=== PATIENT | female | born 1990 | race Hispanic/Latino ===

== ENCOUNTER 2021-02-14 12:29 | Inpatient (IN) | payer OTHER ==
[~2021-02-14] VITALS: Ht 162.6 cm; Wt 70.0 kg
--- NOTE | 2021-02-14 12:35 | NUR ---
PATIENT TO ROOM VIA EMS AND PHYSICIAN AT BEDSIDE FOR EVAL
[2021-02-14 13:02] LABS: GFR > 60 ML/MIN (>=60 (CALC)); GFR FOR AFR.AMER. > 60 ML/MIN (>=60 (CALC))
[2021-02-14 13:03] LABS: HEMATOCRIT 41.2 % (37.0-47.0); HEMOGLOBIN 13.7 g/dl (12.0-16.0); IMMATURE GRANULOCYTES 0.4 % (0.0-5.0); MEAN CELL VOLUME 89.6 fL CALC (80.0-100.0); MEAN CORPUSCULAR HGB 29.8 pG CALC (26.0-32.0); MEAN CORPUSCULAR HGB CONC 33.3 g/dL CAL (32.0-36.0); NEUT# 3.61 thou/uL (2.00-7.15); RED BLOOD COUNT 4.6 mill/uL (4.20-5.60); RED CELL DISTRI WIDTH 11.9 % (11.5-15.5)
--- NOTE | 2021-02-14 13:15 | NUR ---
PATIENT RESTING IN BED WITH WARM BLANKET. NO ACUTE DISTRESS. VSS
[2021-02-14 13:20] LABS: HCG SERUM/URINE (NEG/POS) NEGATIVE (NEGATIVE)
[2021-02-14 13:22] LABS: ALBUMIN 4.2 g/dL (3.2-5.0); ALKALINE PHOSPHATASE 62 u/l (38-126); ANION GAP 9 (6-22 (CALC)); BILIRUBIN, TOTAL 0.7 mg/dL (0.0-1.4); BUN 8 mg/dL (7-17); BUN/CREATININE RATIO 16 (12-20 (CALC)); CARBON DIOXIDE 31 mmol/l (22-30); CHLORIDE 102 mmol/l (95-108); CREATININE 0.5 mg/dL (0.5-1.0); GFR > 60 ML/MIN (>=60 (CALC)); GFR FOR AFR.AMER. > 60 ML/MIN (>=60 (CALC)); POTASSIUM 3.9 mmol/l (3.5-5.1); SGOT/AST 97 u/l (14-36); SODIUM 138 mmol/l (137-146); TOTAL PROTEIN 7.9 g/dL (6.3-8.2)
[2021-02-14 13:41] LABS: C-REACTIVE PROTEIN 15.5 mg/dL (0-0.9)
--- NOTE | 2021-02-14 14:20 | NUR ---
PATIENT RESTING IN BED WITH BLANKET. VSS.
--- NOTE | 2021-02-14 15:31 | NUR ---
PATIENT RESTING IN BED WITH WARM BLANKET. VSS.
--- NOTE | 2021-02-14 17:06 | NUR ---
PATIENT RESTING IN BED. PROVIDED WITH A DRINK. VSS.
[2021-02-14 19:30] VITALS: BP 97/52
--- NOTE | 2021-02-14 19:30 | NUR ---
TO FLOOR VIA STRETCHER.
--- NOTE | 2021-02-14 20:00 | NUR ---
PATIENT ADMITTED FROM ER VIA STRETCHER WITH ER STAFF IN ATTENDANCE. PATIENT ADMITTED WITH COVID. ASSISTED FROM STRETCHER TO THE BED. AWAKE ALERT AND ORIENTEDX3. O2 VIA NASAL CANNULA IN PLACE AT 2LPM. O2 SAT IS 94% AT THIS TIME. TELE MONITOR IN PLACE WITH INITIAL READING OF SR-60'S. LUNGS ARE CLEAR AT THIS TIME. OCC PRODUCTIVE COUGH WITH WHITE SECREATIONS. AND IS SOFT-LAST BM WAS YESTERDAY. PATIENT DENIES ANY DIARRHEA. PATIENT IS HAVING SOME STRESS INCONT WHEN COUGHING. PROVIDED WITH RENEE-PADS AND MESH PANTIES. NO PERIPHERAL EDEMA NOTED. PULSES ARE PALPABLE. PATIENT WAS INSTRUCTED ON U SE OF IS Q1H WHILE AWAKE IN REPS OF 10. WILL NEED REINFORCEMENT-POOR EFFORT AT FIRST. INSTRUCTED REGUARDING PRONING WHEN POSSIBLE-STATES THAT IT MAKES HER COUGH MORE. PROVIDED WITH HEALTHY CHOICE TURKEY DINNER, PUDDING AND DRINK. ORIENTED PATIENT TO ROOM AND SURROUNDINGS. INSTRUCTED ON USE OF NURSE CALL LIGHT SYSTEM, TV REMOTE AND PHONE. SAFETY PRECAUTIONS REINFORCED. CALL LIGHT IN REACH. WILL CONT TO MONITOR.
[2021-02-14 20:32] VITALS: BP 97/52
--- NOTE | 2021-02-15 | NUR ---
PATIENT RESTIG IN BED AT THIS TIME WITH O2 VIA NASAL CANNULA IN PLACE. O2 SAT IS 92% AT THIS TIME. IVF NS PATENT AND INFUSING VIA LACX SITE AT 100CC/HR. TELE MONITOR IN PLACE WITH READING OF SR-61. CALL LIGHT IN REACH. WILL CONT TO MONITOR.
[2021-02-15 00:21] VITALS: BP 102/52
--- NOTE | 2021-02-15 02:18 | NUR ---
PATIENT RESTING IN BED WATCHING TV. O2 VIA N ELKIN CANNULA IN PL [place]-O2 SAT AT 90%. STATES THAT SHE WQAS HAVING "COUGHING SPELL". INCREASED HER O2 TO 4LPM NC. TELE MONITOR IN PLACE. IVF NS PATENT AND INFUSING VIA LAC AT 100CC/HR. SITE REMAINS HEALTHY. CALL LIGHT IN REACH. WILL CONT TO MONITOR.
[2021-02-15 04:00] VITALS: BP 91/54
--- NOTE | 2021-02-15 05:33 | NUR ---
RESTING IN BED-RESTLESS NIGHT, LITTLE SLEEP-O2 VIA NASAL CANNULA AT 4LPM IN PLACE WITH O2 SAT OF 92%. TELE READING SR-67. IVF NS PATENT AND INFUSING VIA LAC SITE AT 100CC/HR. CALL LIGHT IN REACH. WILL CONT TO MONITOR.
[2021-02-15 05:43] LABS: HEMATOCRIT 37.9 % (37.0-47.0); HEMOGLOBIN 12.3 g/dl (12.0-16.0); IMMATURE GRANULOCYTES 0.5 % (0.0-5.0); MEAN CORPUSCULAR HGB 29.2 pG CALC (26.0-32.0); MEAN CORPUSCULAR HGB CONC 32.5 g/dL CAL (32.0-36.0); NEUT# 1.49 thou/uL (2.00-7.15); RED BLOOD COUNT 4.21 mill/uL (4.20-5.60); RED CELL DISTRI WIDTH 11.9 % (11.5-15.5)
[2021-02-15 06:04] LABS: ALBUMIN 3.5 g/dL (3.2-5.0); ALKALINE PHOSPHATASE 58 u/l (38-126); BILIRUBIN, TOTAL 0.5 mg/dL (0.0-1.4); BUN 7 mg/dL (7-17); BUN/CREATININE RATIO 19 (12-20 (CALC)); CHLORIDE 108 mmol/l (95-108); CREATININE 0.4 mg/dL (0.5-1.0); GFR > 60 ML/MIN (>=60 (CALC)); GFR FOR AFR.AMER. > 60 ML/MIN (>=60 (CALC)); POTASSIUM 4.4 mmol/l (3.5-5.1); SGOT/AST 73 u/l (14-36); SODIUM 138 mmol/l (137-146); TOTAL PROTEIN 6.5 g/dL (6.3-8.2)
[2021-02-15 06:27] LABS: ANION GAP 11 (6-22 (CALC)); C-REACTIVE PROTEIN 13.1 mg/dL (0-0.9); CARBON DIOXIDE 23 mmol/l (22-30)
[2021-02-15 07:32] VITALS: BP 100/59
--- NOTE | 2021-02-15 07:32 | NUR ---
PT SLLEPING WHEN ENTERED ROOM. PT IS ALERT AND ORIENTED. COVID + ON 4L. VITALS AND ASSESSMENT COMPLETED. S1 AND S2 HEARD UPON ASCULTATION. BOWELS ACTIVE IN ALL 4 QUADRANTS. SKIN WARM AND DRY. IV PATENT AND HEALTHY. PEDAL PULSES EQUALLY STRONG. NO DISTRESS NOTED. CALL LIGHT WITHIN REACH.
[2021-02-15 10:40] VITALS: BP 92/49
--- NOTE | 2021-02-15 12:01 | NUR ---
PT IN BED. NO DISTRESS NOTED CALL LIGHT WITHIN REACH.
--- NOTE | 2021-02-15 14:26 | NUR ---
PT IN BED. NO DISTRESS NOTED. NO PAIN INDICATED. CALL LIGHT WITHIN REACH.
[2021-02-15 15:10] VITALS: BP 96/52
--- NOTE | 2021-02-15 15:43 | NUR ---
Patient was screened for possible PT intervention today and patient was found to be a good candidate for PT treatment to help patient improve functional weight bearing ADL capability as patient prepares to be discharged from hospital.
--- NOTE | 2021-02-15 18:28 | NUR ---
PT IN BED. NO PAIN INDICATED. CALL LIGHT WITHIN REACH.
[2021-02-15 19:00] VITALS: BP 104/57
[2021-02-16] VITALS (10 sets, daily range): BP systolic 82–99; BP diastolic 47–60
--- NOTE | 2021-02-16 00:45 | NUR ---
PATIENT UP TO THE BSC COMMODE AT THIS TIME. STAND BY ASSIST REQUIRED
--- NOTE | 2021-02-16 04:29 | NUR ---
PATIENT RESTING COMOFROTABLY IN BED, DENIES ANY CURRENT NEEDS, CALL LIGHT AND BEDSIDE TABLE WITHIN REACH.
[2021-02-16 06:35] LABS: HEMATOCRIT 36.1 % (37.0-47.0); HEMOGLOBIN 11.7 g/dl (12.0-16.0); IMMATURE GRANULOCYTES 0.2 % (0.0-5.0); MEAN CELL VOLUME 90.7 fL CALC (80.0-100.0); MEAN CORPUSCULAR HGB 29.4 pG CALC (26.0-32.0); MEAN CORPUSCULAR HGB CONC 32.4 g/dL CAL (32.0-36.0); NEUT# 2.85 thou/uL (2.00-7.15); RED BLOOD COUNT 3.98 mill/uL (4.20-5.60); RED CELL DISTRI WIDTH 11.8 % (11.5-15.5)
[2021-02-16 06:38] LABS: ALBUMIN 3.1 g/dL (3.2-5.0); ALKALINE PHOSPHATASE 31 u/l (38-126); ANION GAP 10 (6-22 (CALC)); BILIRUBIN, TOTAL 0.7 mg/dL (0.0-1.4); BUN 12 mg/dL (7-17); BUN/CREATININE RATIO 29 (12-20 (CALC)); CARBON DIOXIDE 23 mmol/l (22-30); CHLORIDE 112 mmol/l (95-108); CREATININE 0.4 mg/dL (0.5-1.0); GFR > 60 ML/MIN (>=60 (CALC)); GFR FOR AFR.AMER. > 60 ML/MIN (>=60 (CALC)); POTASSIUM 4.9 mmol/l (3.5-5.1); SGOT/AST 52 u/l (14-36); SODIUM 139 mmol/l (137-146)
--- NOTE | 2021-02-16 07:00 | NUR ---
REIEVED REPORT FROM INES LIMON
--- NOTE | 2021-02-16 07:56 | NUR ---
PT RESTING IN SEMI FOWLERS POSITION. PT IS A/O X3. ASSESSMENT AND VITALS COMPLETED. BP 94/51, HR 50, O2 92% ON 4L NC. RESPIRATIONS ARE EVEN AND UNLABORED. LUNG SOUNDS ARE DIMINSHED.PRODUCTIVE COUGH NOTED, YELLOW SPUTUM PER PT. HEART RHYTHM NORMAL WITH TELE IN PLACE, SB PER ER MONITORING. BOWEL SOUNDS ARE ACTIVE. #20G LAC INFUSING WITH IVF PER ORDER, SITE REMAINS HEALTHY AND PATENT. SKIN INTACT. PT COMPLAINS OF 4/10 GENERALIZED PAIN, TYELNOL TO BE ADMINISTERED. PT STATES SHE DOESNT FEEL SO WELL THIS MORNING. PT REPORSTSIONED IN BED. FRESH ICE WATER ADMINISTERED. PT DENIES OF ANY ADDITIONAL NEEDS AT THIS TIME. ALL SAFETY AND ISOLATION PRCAUTIONS ARE IN PLACE. WILL CONTINUE TO MONITOR.
--- NOTE | 2021-02-16 08:23 | NUR ---
OT Screen complete: OT services not required at this time.
--- NOTE | 2021-02-16 09:55 | NUR ---
VIDEOGRAPHER INFORMED BY TELE MONITORING THAT HR DROPPED TO 35. PT AWAKENS TO SPEECH. STATES SHES JUST SLEEPY. MD TO BE NOTIFIED.
--- NOTE | 2021-02-16 10:48 | NUR ---
REPORTED BP OF 83/53, 500 BOLUS ADMINISTERED. PT REMAINS ASYMPTOMATIC. RESPIRATIONS ARE EVEN AND UNLABORED ON 4L NC. WILL CONTINUE TO MONITOR
--- NOTE | 2021-02-16 11:00 | NUR ---
DR MATTSON AND HAFSA,ANSÁNCHEZ AT BEDSIDE
--- NOTE | 2021-02-16 11:11 | NUR ---
REASSESSMENT OF BP REUSLTING IN , HR 51.
--- NOTE | 2021-02-16 12:21 | NUR ---
PT RESTING IN SEMI FOWLERS POSITION ON PHONE. RESPIRATIONS ARE EVEN AND UNLBAORED ON 2L NC, O2 93%. TELE MONITORING IN PLACE. PT REQUEST FOR INHALER, ADMINISTERED. PT DENIES OF ANY PAINS OR DISCOMFORTS. ALL SAFETY PRECAUTIONS ARE IN PLACE WITH CALL LIGHT IN REACH. WILL CONTINUE TO MONITOR
--- NOTE | 2021-02-16 13:23 | NUR ---
pt complains of nausea, zofran administered. pt tolerted well.
--- NOTE | 2021-02-16 16:19 | NUR ---
REASSESSMENT OF BP RESULTING IN 84/56. PT STATES SHE IS DIZZY BUT HAS BEEN ALL DAY.WALESKA,ANRP NOTIFIED OF BP REMAINING IN 80/50'S. NO NEW ORDERS OBTAINED.#20G LAC INFUSING WITH IVF PER ORDER, SITE REMAINS HEALTHY AND PATENT. RESPIRATIONS ARE EVEN AND UNLABORED ON 2L NC. TELE MONITORING IN PLACE. ALL SAFETY PRECAUTIONS ARE IN PLACE WITH CALL LIGHT IN REACH. WILL CONTINUE TO MONITOR
--- NOTE | 2021-02-16 18:50 | NUR ---
REPORT RECEIVED FROM Epifanio POWERS LPN
--- NOTE | 2021-02-16 20:37 | NUR ---
AIR CONTACT ISOLATIONS IN PLACE. PT IS A/O X3. ASSESSMENT COMPLETED O2 97% ON 2L NC. RESPIRATIONS ARE EVEN AND UNLABORED. LUNG SOUNDS ARE DIMINSHED.PRODUCTIVE COUGH NOTED, YELLOW SPUTUM PER PT. HEART RHYTHM NORMAL WITH TELE IN PLACE, SB PER ER MONITORING. BOWEL SOUNDS ARE ACTIVE. #20G LAC INFUSING WITH IVF PER ORDER, SITE REMAINS HEALTHY AND PATENT. CALL LIGGHT AND BEDSIDE TABLE WITHIN REACH.
--- NOTE | 2021-02-16 20:43 | NUR ---
PATIENT UP TO THE RESTROOM AT THIS TIME. STAND BY ASSSIT PROVIDED.
--- NOTE | 2021-02-16 23:10 | NUR ---
CALL RECEIVED FROM ER MONITORING. PT HR SUSTAINING 36-37. VITALS ASSESD AT THIS TIME. PT SLEEPING SOUNDLY, AWOKEN BY WRITTER. APICAL HR 49, BP 105/56, 97% OXYGEN ON 2 L. RESP EVEN AND UNLABORED AT19
--- NOTE | 2021-02-16 23:22 | NUR ---
RECEIVED CALL FROM ER MONITORING PAT ONCE AGAIN READING HR SUSTAINING 36. VITALS REASSSED, APICAL HR 48, BP 106/65, OXYGEN 97 ON 2L RESP EVEN AND UNLABORED.
--- NOTE | 2021-02-16 23:30 | NUR ---
DR MATTSON AWARE OF HR TRENDS. NO FURTHER ORDERS AT THIS TIME.
--- NOTE | 2021-02-17 03:38 | NUR ---
CALL RECEIVED FROM ER. PATIENT SUSTINING HR 36. PATIENT SLEEPING SOUNDLY, IN NO APAPRENT DISTRESS, AWOKEN BY WRITTER. PATIENT WOULD LIKE SOMETHING TO EAT. WRITTER WILL PROVIDE.
[2021-02-17 04:00] VITALS: BP 103/60
[2021-02-17 05:54] LABS: HEMATOCRIT 35.2 % (37.0-47.0); HEMOGLOBIN 11.6 g/dl (12.0-16.0); MEAN CELL VOLUME 89.3 fL CALC (80.0-100.0); MEAN CORPUSCULAR HGB 29.4 pG CALC (26.0-32.0); NEUT# 3.94 thou/uL (2.00-7.15); RED BLOOD COUNT 3.94 mill/uL (4.20-5.60); RED CELL DISTRI WIDTH 11.9 % (11.5-15.5)
[2021-02-17 06:16] LABS: ALKALINE PHOSPHATASE 45 u/l (38-126); ANION GAP 9 (6-22 (CALC)); BILIRUBIN, TOTAL 0.5 mg/dL (0.0-1.4); BUN 9 mg/dL (7-17); BUN/CREATININE RATIO 19 (12-20 (CALC)); C-REACTIVE PROTEIN 2.7 mg/dL (0-0.9); CARBON DIOXIDE 24 mmol/l (22-30); CHLORIDE 108 mmol/l (95-108); CREATININE 0.5 mg/dL (0.5-1.0); GFR > 60 ML/MIN (>=60 (CALC)); GFR FOR AFR.AMER. > 60 ML/MIN (>=60 (CALC)); SGOT/AST 46 u/l (14-36); SODIUM 137 mmol/l (137-146); TOTAL PROTEIN 5.6 g/dL (6.3-8.2)
[2021-02-17 06:21] LABS: POTASSIUM 3.6 mmol/l (3.5-5.1)
--- NOTE | 2021-02-17 08:03 | NUR ---
PT AWAKE,ALERT AND ORIENTED. PT DENIES ANY PAIN OR SOB AT THIS TIME. VS AND ASSESSMENT COMPLETE. LUNGS ARE CLEAR AND DIMINISHED. BREATHS ARE EVEN AND UNLABORED. HR IS 49. ABDOMEN IS SOFT ROUND AND NONTENDER. PERIPHERAL PULSES ARE PALPABLE. IV INTACT AND PATENT. FLUSHED IV AND SALINE LOCKED. SAFETY PRECAUTIONS ARE IN PLACE AND CALL LIGHT WITHIN PATIENTS REACH. WILL MONITOR PATIENT CLOSELY
[2021-02-17 10:30] VITALS: BP 92/50
--- NOTE | 2021-02-17 12:00 | NUR ---
PT AWAKE AND SITTING IN BED. PT DENIES ANY IMMEDIATE NEEDS AT THIS TIME. WILL CONTINUE TO MONITOR PT CLOSELY
[2021-02-17 15:00] VITALS: BP 91/54
--- NOTE | 2021-02-17 16:00 | NUR ---
PT SLEEPING. PT HAS NO NEEDS AT THIS TIME. SAFETY PRECAUTIONS ARE IN PLACE. CALL LIGHT WITHIN PATIENTS REACH. WILL CONTINUE TO MONITOR PT CLOSELY
[2021-02-17 19:28] VITALS: BP 110/65
--- NOTE | 2021-02-17 20:20 | NUR ---
PATIENT ALERT AND ORIENTED. ABLE TO MAKE NEEDS KNOWN. ASSESSMENT COMPLETE. DENIES ANY PAIN OR DISCOMFORT AT THIS TIME. CALL LIGHT AND BELONGINGS REMAIN IN REACH. REFILLED HIGHFLOW CONTAINER WITH STERILE WATER.
--- NOTE | 2021-02-18 00:13 | NUR ---
ER CALLED TO INFORM OF PATIENTS HR IN HIGH 30'S. BEFORE CALL ENDED PATIENTS HR WAS UP TO 41-44.
[2021-02-18 00:30] VITALS: BP 115/57
--- NOTE | 2021-02-18 01:13 | NUR ---
ADMINISTERED PRN TYLENOL TO PATIENT PER REQUEST FOR HEADACHE. NO DISTRESS NOTED.
[2021-02-18 05:14] VITALS: BP 119/62
--- NOTE | 2021-02-18 07:15 | NUR ---
REPORT FROM SHAQ CHACON. ASSUMED PT CARE.
[2021-02-18 08:19] VITALS: BP 89/52
--- NOTE | 2021-02-18 09:19 | NUR ---
PT MEDICATED ORDERED. NO APPARENT DISTRESS NOTED. PT BACK IN B[place] [facility] [place]1 WITH SMALL LOOSE BM NOTED. RESPIRATIONS EVEN AND UNLABORED. PT ON 2L/M VIA NC. DISCUSSED POC. PT VERBALIZED UNDERSTANDING. PT SPILLED COFFEE ON BED. COMPLETE LINEN CHANGE BY MURALI ISLAS AT THIS TIME. HOME O2 TANK PRESENT IN ROOM. PT DENIES ANY OTHER CURRENT WANTS OR NEEDS. CALL LIGHT WITHIN REACH. WILL CONTINUE TO MONITOR.
[2021-02-18 10:42] VITALS: BP 82/46
--- NOTE | 2021-02-18 11:28 | NUR ---
PT NOTED RESTING IN BED. O2 SAT 93% ON RA. PT FAILED 6 MIN WALK TEST UPON AMBULATION IN ROOM PT SAT DROPPED DOWN TO 88% ON RA. PT PLACED ON 2L/M O2 VIA NC. WILL CONTINUE TO MONITOR.
[2021-02-18] MEDS ORDERED: DEXAMETHASON6 MG PO ×2 (13:56→13:57)
[2021-02-18] MEDS ORDERED: VENTOLIN HFA108 MCG IN (13:56)
[2021-02-18] MEDS ORDERED: ZITHROMAX250 MG PO (13:56)
[2021-02-18] MEDS ORDERED: ZOFRAN4 MG/TAB PO (13:56)
[2021-02-18] MEDS ORDERED: PROTONIX40 MG PO (13:56)
[2021-02-18] MEDS ORDERED: ASPIRIN REGULA325 M1 PO ×2 (13:56)
[2021-02-18 14:55] VITALS: BP 89/52
--- NOTE | 2021-02-18 15:46 | NUR ---
Discharge instructions given. Patient verbalizes understanding of same. Pending ride black pickler at this time. Will D/C IV site at that time.
--- NOTE | 2021-02-18 18:02 | NUR ---
PT STATES HER RIDE SHOULD BE HERE AROUND 7 OR 8 PM. DINNER PROVIDED. PT DENIES ANY CURRENT WANTS OR NEEDS. CALL LIGHT WITHIN REACH. WILL CONTINUE TO MONITOR.
[2021-02-18 19:00] VITALS: BP 93/46
--- NOTE | 2021-02-18 19:26 | NUR ---
Discharge instructions given. Patient verbalizes understanding of same. Discharged in good condition via Wheelchair to Home with family. All belongings sent with pt.
--- NOTE | 2021-02-22 11:21 | NUR ---
Pneumonia post discharge follow up call completed today. Pt. states she is recovering well. No fever or increased SOB. Occassional chills experienced at night. Pt. states she has not had to use oxygen except on occassion. Prescribed discharge medications were obtained and are being taken without issue. Pt. called to schedule follow up appt. but was told she would have to wait due to her positive COVID 19 sstatus. Pt. is waiting for return call with further instruction from PCP at this time. No questions or concerns expressed at this time.
== END 2021-02-18 19:26 | disposition home or self-care (01) | DRG 177 ==
LOC: ED 12:29 → ED-I 14:31 → ED 14:47 → MS2 14:48
PROVIDERS: Family Medicine; Nurse Practitioner; ADMIT Internal Medicine; ATTEND Internal Medicine
PROC: XW033E5 Introduction of Remdesivir Anti-infective into Peripheral Vein, Percutaneous Approach, New Technology Group 5 (ICD-10-PCS; principal; 2021-02-14)
DX: U07.1 COVID-19 (principal); J12.82 Pneumonia due to coronavirus disease 2019; R09.02 Hypoxemia; D72.818 Other decreased white blood cell count; R00.1 Bradycardia, unspecified; T37.5X5A Adverse effect of antiviral drugs, initial encounter; I95.9 Hypotension, unspecified
CPT/HCPCS: J1650; Q9967

== ENCOUNTER 2022-11-29 18:52 | Emergency (ER) | payer SELFPAY ==
[~2022-11-29] VITALS: Ht 149.9 cm; Wt 79.0 kg
[~2022-11-29 18:52] MED LIST: ASPIRIN REGULA325 M1 PO; DEXAMETHASON6 MG PO; PROTONIX40 MG PO; VENTOLIN HFA108 MCG IN; ZITHROMAX250 MG PO; ZOFRAN4 MG/TAB PO
[2022-11-29 19:09] VITALS: BP 126/72
[2022-11-29] MEDS ORDERED: AMOX/K CLAV875 M1 PO (19:23)
[2022-11-29 19:59] VITALS: BP 126/72
== END 2022-11-29 20:02 | disposition home or self-care (01) | DRG 153 ==
LOC: ED 18:52
DX: H66.92 Otitis media, unspecified, left ear (principal)